=== PATIENT | female | born 1985 | race Two or more races ===

== ENCOUNTER 2018-02-18 23:20 | Emergency (ER) | payer SELFPAY ==
[~2018-02-18] VITALS: Ht 160 cm; Wt 56.7 kg
[2018-02-18] MEDS ORDERED: IV NORMAL SALINE 1000 ML BAG IV ONE (23:45)
[2018-02-19 00:25] LABS: BASOPHILS # (AUTO) 0.1 K/uL (0.0-8.0); BASOPHILS % (AUTO) 0.7 % (0.0-2.0); EOSINOPHILS # (AUTO) 0.1 K/uL (0.0-0.7); EOSINOPHILS % (AUTO) 1.9 % (0.0-7.0); HEMATOCRIT 43.1 % (31.2-41.9); HEMOGLOBIN 14.4 g/dL (10.9-14.3); LYMPHOCYTES % (AUTO) 38.5 % (20.5-51.5); MEAN CORPUSCULAR HEMOGLOBIN 27.1 uug (24.7-32.8); MEAN CORPUSCULAR HGB CONC 33 g/dL (32.3-35.6); MEAN CORPUSCULAR VOLUME 81.2 fL (75.5-95.3); MONOCYTES # (AUTO) 0.6 K/uL (2.0-10.0); MONOCYTES % (AUTO) 8.2 % (0.0-11.0); NEUTROPHILS # (AUTO) 3.9 K/uL (1.8-8.9); NEUTROPHILS % (AUTO) 50.7 % (38.5-71.5); PLATELET COUNT (AUTO) 229 K/uL (179-408); RED BLOOD CELL COUNT(AUTO) 5.31 MIL/uL (3.63-4.92); WHITE BLOOD COUNT (AUTO) 7.7 K/uL (3.8-11.8)
[2018-02-19 00:27] LABS: *BILIRUBIN,URIN NEGATIVE (NEGATIVE); *BLOOD, URINE Trace-lysed (NEGATIVE); *CLARITY,URINE CLEAR (CLEAR); *COLOR,URINE YELLOW (YELLOW); *KETONES,URINE NEGATIVE (NEGATIVE); *PROTEIN,URINE NEGATIVE (NEGATIVE); *UROBILINOGEN,URINE 0.2 E.U./dl (NORMAL); LEUKOCYTE ESTERASE ,URINE NEGATIVE (NEGATIVE); NITRITE, URINE NEGATIVE (NEGATIVE)
[2018-02-19 00:32] LABS: CREATININE 1.2 mg/dL (0.6-1.3); POTASSIUM 3.9 mmol/L (3.5-5.1)
[2018-02-19 00:32] LABS: UGLUCOSE 3+ (NEGATIVE)
[2018-02-19 00:35] LABS: ACETAMINOPHEN < 2.0 ug/mL (10-30); BILIRUBIN,DIRECT 0.1 mg/dL (0.0-0.2); BILIRUBIN,TOTAL 0.5 mg/dL (0.2-1.0); TOTAL PROTEIN, SERUM 7.7 g/dL (6.4-8.2)
[2018-02-19 00:41] LABS: *URINE HCG, QUAL NEGATIVE (NEGATIVE)
[2018-02-19 00:42] LABS: BACTERIA,URINE NONE SEEN /HPF (NONE SEEN); RBC,URINE 0-3 /HPF (0-3); SQUAMOUS EPITHELIAL CELL,UR FEW /HPF (NONE SEEN); WBC,URINE 0-3 /HPF (0-3)
[2018-02-19 00:45] LABS: ETHANOL < 3 MG/DL (0-0)
[2018-02-19] MEDS ORDERED: POTASSIUM CHLORIDE 20 MEQ TAB.PRT.SR PO ONE (00:45)
[2018-02-19] MEDS ORDERED: INSULIN REGULAR, HUMAN 1,000 UNITS/10 ML VIAL IV ONE (00:45)
[2018-02-19 00:47] LABS: *AMPHETAMINE, URINE POSITIVE (NEGATIVE); *BARBITURATE, URINE NEGATIVE (NEGATIVE); *CANNABINOID, URINE NEGATIVE (NEGATIVE); *COCCAINE, URINE NEGATIVE (NEGATIVE); *OPIATE, URINE NEGATIVE (NEGATIVE); *PHENCYCLIDINE SCREEN,URINE NEGATIVE (NEGATIVE)
[2018-02-19] MEDS ORDERED: POTASSIUM CHLORIDE 20 MEQ TAB.PRT.SR ONE (00:48)
[2018-02-19] MEDS ORDERED: INSULIN REGULAR, HUMAN 300 UNIT/3 ML VIAL ONE (00:49)
--- NOTE | 2018-02-19 00:52 | NUR ---
15 UNITS OF INSULIN VERIFIED BY ELKE MANCILLA
--- NOTE | 2018-02-19 00:58 | NUR ---
PT IN BED. PT IS A&OX4. PT IS CALM AND COOPERATIVE. PT'S BREATH SOUNDS ARE EVEN AND UNLABORED. NO SIGNS OF DISTRESS WITNESSED AT THIS TIME.
--- NOTE | 2018-02-19 01:05 | NUR ---
Patient discharged to home in stable conditon. Written and verbal after care instructions given. Patient verbalizes understanding of instructions. Patient was offered a repeat glucose check prior to discharge; however, patient refused electing to recheck her own insulin once at home. Patient able to ambulate unassisted with steady gait. Patient left with all personal belongings.
[2018-02-19 01:14] VITALS: BP 125/84
== END 2018-02-19 01:05 | disposition home or self-care (01) ==
LOC: ER 23:20
DX: E10.65 Type 1 diabetes mellitus with hyperglycemia (principal); F15.10 Other stimulant abuse, uncomplicated; Z79.4 Long term (current) use of insulin
CPT/HCPCS: 36415; 80307; 84443; 84703; 85025; 93005; A4663; G0480; G0480-TC; J1815; J7030